=== PATIENT | male | born 1990 | race Caucasian/White ===

== ENCOUNTER 2017-10-19 12:27 | Emergency (ER) | payer SELFPAY ==
[~2017-10-19] VITALS: Ht 162.6 cm; Wt 100.0 kg
[2017-10-19] MEDS ORDERED: CLIN-80 PO (12:41)
[2017-10-19 12:51] VITALS: BP 138/92
== END 2017-10-19 12:53 | disposition home or self-care (01) ==
LOC: ER 12:27
DX: L03.211 Cellulitis of face (principal)
CPT/HCPCS: 99283

== ENCOUNTER 2021-04-06 14:15 | Emergency (ER) | payer OTHER ==
[~2021-04-06] VITALS: Ht 162.6 cm; Wt 90.9 kg
[~2021-04-06 14:15] MED LIST: CLIN-97 PO
[2021-04-06 14:50] VITALS: BP 129/90
== END 2021-04-06 15:35 | disposition home or self-care (01) ==
LOC: ER 14:49
DX: M25.511 Pain in right shoulder (principal); V87.7XXA Person injured in collision between other specified motor vehicles (traffic), initial encounter; Y93.89 Activity, other specified; Y92.89 Other specified places as the place of occurrence of the external cause; Y99.8 Other external cause status
CPT/HCPCS: 99281